=== PATIENT | female | born 1985 | race Caucasian/White ===

== ENCOUNTER 2019-09-12 09:30 | Inpatient (IN) | payer OTHER ==
[~2019-09-12] VITALS: Ht 170.1 cm; Wt 66.4 kg
[2019-09-12 09:32] VITALS: BP 80/40
[2019-09-12 09:49] LABS: BASO % 0.5 % (0.0-1.0); EOS # 0.4 10*3/uL (0.0-0.4); EOS % 6.6 % (1.0-4.0); HEMATOCRIT 40.7 % (37.0-47.0); HEMOGLOBIN 12.7 g/dl (12.0-16.0); LYMPH # 2.2 10*3/uL (1.3-4.4); LYMPH % 34.1 % (27.0-41.0); MEAN CELL VOLUME 90.8 fl (81.0-99.0); MEAN CORPUSCULAR HGB 28.3 pg (27.0-31.0); MEAN CORPUSCULAR HGB CONC 31.2 g/dl (33.0-37.0); MEAN PLATELET VOLUME 11.1 fl (9.6-12.3); MONO # 0.5 10*3/uL (0.1-1.0); MONO % 7.9 % (3.0-9.0); NEUT # 3.3 10*3/uL (2.3-7.9); NEUT % 50.7 % (47.0-73.0); PLATELET COUNT AUTOMATED 329 10*3/uL (130-400); RED BLOOD COUNT 4.48 10*6/uL (4.10-5.10); RED CELL DISTRI WIDTH 12.3 % (0-14.5); WHITE BLOOD COUNT 6.5 10*3/uL (4.8-10.8)
[2019-09-12 10:00] LABS: ACT PARTIAL THROMBO TIME 23.6 SECONDS (20.0-32.1)
[2019-09-12 10:04] LABS: ALBUMIN 3.3 gm/dl (3.1-4.5); ALKALINE PHOSPHATASE 75 U/L (45-117); BUN 11 mg/dl (7-24); CHLORIDE 104 mmol/L (98-107); CREATININE 1.18 mg/dL (0.55-1.02); LIPASE 73 U/L (73-393); POTASSIUM 3.6 mmol/L (3.5-5.1); SGOT/AST 30 IU/L (3-35); SGPT/ALT 30 U/L (12-78); SODIUM 141 mmol/L (136-145); TOTAL PROTEIN 6.8 gm/dL (6.4-8.2)
[2019-09-12 10:08] LABS: BETA-HCG, QUANT < 1.0 mIU/mL (1-3); ETHYL ALCOHOL < 3.0 mg/dl (<3)
[2019-09-12 11:08] LABS: BILIRUBIN NEGATIVE (NEGATIVE); BLOOD 2+ (NEGATIVE); CLARITY CLOUDY (CLEAR); COLOR YELLOW (YELLOW); GLUCOSE NEGATIVE (NEGATIVE); KETONE NEGATIVE (NEGATIVE); LEUKO ESTERASE 3+ (NEGATIVE); NITRITE NEGATIVE (NEGATIVE); SPECIFIC GRAVITY 1.015 (1.005-1.030); UROBILINOGEN 0.2 E.U./dl (0.2-1.0)
[2019-09-12 11:09] VITALS: BP 78/35
--- NOTE | 2019-09-12 11:09 | NUR ---
PT REMAINS AWAKE AND ALERT WITH NO COMPLAINTS EXCEPT STILL FEELING "TIRED". BP REMAINS STABLE BUT HYPOTENSIVE, SALINE BOLUS INFUSING.
--- NOTE | 2019-09-12 11:19 | NUR ---
DR JIMENEZ MADE AWARE OF CONTINUED HYPOTENSION AND PT'S CLONIDINE DOSE AT [facility]. HE STATED HE WILL ADMIT HER FOR HYPOTENSION.
[2019-09-12 11:21] LABS: BACTERIA 4+; RBC 51-100 rbc/hpf (0-2); WBC TNTC wbc/hpf (0-5)
[2019-09-12 11:24] LABS: URINE AMPHETAMINES < 1000 (1000ng/ml); URINE BARBITURATES < 200 (200ng/ml); URINE BENZODIAZEPINES < 200 (200ng/ml); URINE CANNABINOIDS (THC) < 50 (50ng/ml); URINE COCAINE > 300 (300ng/ml); URINE METHADONE < 300 (300ng/ml); URINE OPIATES < 300 (300ng/ml)
[2019-09-12 11:26] LABS: URINE PHENCYCLIDINE < 25 (25ng/ml)
[2019-09-12 12:38] VITALS: BP 86/50
[2019-09-12 13:20] VITALS: BP 88/42
--- NOTE | 2019-09-12 13:20 | NUR ---
A 34, admitted to , under the services of BRIAN Curran DO with a diagnosis of UTI, MEDICATION SIDE EFFECT, SYNCOPE, HYPOTENSION. Chief complaint is MEDICATION SIDE EFFECT. Patient arrived via wheel chair from ER. Monitor applied. Initial assessment completed. Vital signs taken and recorded. BRIAN CURRAN DO notified of admission to the unit. Orders received. See assessment for past medical history, medications and allergies. Patient and/or family oriented to unit. [facility] visitation policy reviewed. Clothing/patient valuable form completed. PATRICK RIOS
--- NOTE | 2019-09-12 14:45 | NUR ---
PATIENT MEETS [facility]. PATIENT IS WANTING TO FOLLOW UP WITH THE [facility] FOR INTENSIVE OUTPATIENT TREATMENT. [facility] STAFF WILL FOLLOW UP WITH PATIENT. MESSI FERRIS B.A. TELECOMMUNICATIONS CABLE JOINTER
--- NOTE | 2019-09-12 15:24 | NUR ---
PT GIVEN ROBAXIN AND VISTARIL FOR C/O MUSCLE ACHES AND ANXIETY. WILL MONITOR FOR EFFECTIVENESS. CALL LIGHT IN REACH.
[2019-09-12 16:00] VITALS: BP 87/45
--- NOTE | 2019-09-12 16:24 | NUR ---
VISTARIL AND ROBAXIN EFFECTIVE.
[2019-09-12 20:00] VITALS: BP 84/40
--- NOTE | 2019-09-12 21:37 | NUR ---
PRN TRAZODONE AND REQUIP ADMINISTERED AT THIS TIME.
[2019-09-13] VITALS (7 sets, daily range): BP systolic 83–103; BP diastolic 46–62
--- NOTE | 2019-09-13 09:27 | NUR ---
PT GIVEN ROBAXIN AT THIS TIME FOR C/O MUSCLE ACHES. WILL MONITOR FOR EFFECTIVENESS.
--- NOTE | 2019-09-13 10:30 | NUR ---
ROBAXIN EFFECTIVE PER PT.
--- NOTE | 2019-09-13 16:00 | NUR ---
PT RESTING IN BED, SCHEDULED MEDICATION GIVEN. PT DENIES ANY DISTRESS/DISCOMFORT AT THIS TIME. PT DROWSY BUT STATES THAT SHE DID ORDER HER DINNER. WILL CONTINUE TO MONITOR. BP 90/60 MANUALLY. PT IS ASYMPTOMATIC. RESPIRATIONS EASY AND UNLABORED ON ROOM AIR. CALL LIGHT IN REACH.
--- NOTE | 2019-09-13 18:34 | NUR ---
PT SLEEPING, RESPIRATIONS UNLABORED. SAFETY MEASURES IN PLACE. CALL LIGHT IN REACH.
--- NOTE | 2019-09-13 20:07 | NUR ---
MOTRIN, ROBAXIN, REQUIP, AND TRAZODONE ADMINISTERED PRESCRIBED FOR PT C/O MUSCLE ACHES/RESTLESS LEGS & A HEADACHE. WILL CONTINUE TO MONITOR AND REASSESS.
--- NOTE | 2019-09-13 21:30 | NUR ---
PT ASLEEP AT THIS TIME. NO SIGNS OF DISCOMFORT OR DISTRESS.
--- NOTE | 2019-09-13 22:27 | NUR ---
24 HOUR CHART CHECK COMPLETE.
[2019-09-14] VITALS: BP 104/72
--- NOTE | 2019-09-14 07:23 | NUR ---
24 HR chart check completed.
[2019-09-14 08:00] VITALS: BP 109/70
[2019-09-14 08:15] VITALS: BP 94/66
[2019-09-14 12:00] VITALS: BP 93/64
[2019-09-14 16:00] VITALS: BP 110/64; BP 155/74
--- NOTE | 2019-09-14 17:24 | NUR ---
24 HR chart check completed.
[2019-09-14 20:00] VITALS: BP 109/67
--- NOTE | 2019-09-14 21:54 | NUR ---
PT MEDICATED WITH ROBAXIN FOR COMPLAINTS OF LEG CRAMPS AND TRAZODONE FOR COMPLAINTS OF INSOMNIA. WILL MONITOR EFFECTIVENESS.
[2019-09-15] VITALS: BP 115/77
--- NOTE | 2019-09-15 02:17 | NUR ---
Patient resting quietly with no c/o discomfort. Respirations easy and regular. Vital signs stable. No overt distress. EFRAÍN PRIEST
[2019-09-15 06:19] LABS: BASO % 0.6 % (0.0-1.0); EOS # 0.5 10*3/uL (0.0-0.4); EOS % 8.7 % (1.0-4.0); HEMATOCRIT 36.1 % (37.0-47.0); HEMOGLOBIN 11.4 g/dl (12.0-16.0); LYMPH # 1.8 10*3/uL (1.3-4.4); LYMPH % 35.5 % (27.0-41.0); MEAN CELL VOLUME 87.6 fl (81.0-99.0); MEAN CORPUSCULAR HGB 27.7 pg (27.0-31.0); MEAN CORPUSCULAR HGB CONC 31.6 g/dl (33.0-37.0); MEAN PLATELET VOLUME 11.9 fl (9.6-12.3); MONO # 0.5 10*3/uL (0.1-1.0); MONO % 8.7 % (3.0-9.0); NEUT # 2.4 10*3/uL (2.3-7.9); NEUT % 46.3 % (47.0-73.0); PLATELET COUNT AUTOMATED 257 10*3/uL (130-400); RED BLOOD COUNT 4.12 10*6/uL (4.10-5.10); WHITE BLOOD COUNT 5.2 10*3/uL (4.8-10.8)
[2019-09-15 08:00] VITALS: BP 113/55
--- NOTE | 2019-09-15 08:34 | NUR ---
PT REQUESTED AND RECEIVED PO ROBAXIN, MOTRIN AND VISTARIL PER PRN ORDER FOR C/O MUSCLE ACHES/DISCOMFORT AND ANXIETY. WILL MONITOR EFFECTIVENESS OF MEDS. ROUTINE SUBUTEX GIVEN AT THIS TIME.
--- NOTE | 2019-09-15 10:44 | NUR ---
Discharge instructions reviewed with patient/family. Patient receptive and verbalizes understanding. Follow-up care arranged. Written instructions given to patient/family. RUTHANN ACUNA.
== END 2019-09-15 10:44 | disposition home or self-care (01) | DRG 204 ==
LOC: ED 09:30 → EDHOLD 12:47 → 4E 12:47
PROVIDERS: Emergency Medicine; ADMIT Internal Medicine
DX: R55 Syncope and collapse (principal); I95.2 Hypotension due to drugs; N39.0 Urinary tract infection, site not specified; F11.23 Opioid dependence with withdrawal; B19.20 Unspecified viral hepatitis C without hepatic coma; T50.995A Adverse effect of other drugs, medicaments and biological substances, initial encounter; B96.20 Unspecified Escherichia coli [E. coli] as the cause of diseases classified elsewhere; Z83.3 Family history of diabetes mellitus; Z82.49 Family history of ischemic heart disease and other diseases of the circulatory system; Z88.8 Allergy status to other drugs, medicaments and biological substances; Y92.89 Other specified places as the place of occurrence of the external cause